=== PATIENT | female | born 1995 | race Caucasian/White ===

== ENCOUNTER 2021-10-14 17:04 | Emergency (ER) | payer BC ==
--- OUTSIDE RECORDS SUMMARY | 2021-10-14 17:07 | XMS REPORT | Continuity of Care Document ---
:1995 Author Organization [facility] Address [address] [place] [address] Dr. Wong [address] [place] [address] Care Team Providers Name Role Phone LISA Attending Clinician Unavailable Payers Payer Name Policy Type Policy Number Effective Date Expiration Date S ariadne [facility] - [id number] 2019 00:00:00 OUT OF STATE Problems This patient has no known problems. Allergies, Adverse Reactions, Alerts Allergy Allergy Status Severity Reaction(s) Onset Inactive Treating Comm ents Source Name Type Date Date Clinician NO KNOWN Drug Active [facility] Medications This patient has no known medications. Procedures This patient has no known procedures. Encounters Start End Encounter Admission Attending Care Care Encounter Source Date/Time Date/Time Type Type Clinicians Facility Department ID 2020-08-18 2020-08-18 Outpatient R LISA [facility] [id number] [facility] 10:30:00 10:30:00 PHYLLIS [id number] [facility] 2020-08-18 2020-08-18 Outpatient R LISA [facility] [id number] [facility] 10:30:00 10:30:00 [facility] 2020-08-07 2020-08-07 Outpatient R LISA [facility] [id number] [facility] 13:15:00 13:15:00 [facility] 2020-08-07 2020-08-07 Outpatient Shivam GONZALEZ [facility] [id number] [facility] 13:15:00 13:15:00 [facility] 2020-06-29 2020-06-29 Outpatient R LISA [facility] [id number] [facility] 13:30:00 13:30:00 PHYLLIS [id number] [facility] 2020-06-29 2020-06-29 Outpatient R VANAPHAN, [facility] [id number] [facility] 13:30:00 13:30:00 [facility] 2020-03-11 2020-03-11 [facility] [id number] [facility] 13:00:00 13:00:00 [facility] Results This patient has no known results.
[2021-10-14] MEDS ORDERED: MORPHINE 2 MG/ML SYR ONE (17:45)
[2021-10-14] MEDS ORDERED: NA CHLORIDE 0.9% 1,000 ML ONE (17:45)
[2021-10-14] MEDS ORDERED: ONDANSETRON 4 MG/2 ML VIAL ONE (17:46)
[2021-10-14 17:57] LABS: Urine Blood Trace-intact (Negative); Urine Glucose Negative (Negative); Urine Protein Negative (Negative); Urine pH 5.5 (5.0-7.0)
[2021-10-14 18:24] LABS: Absolute Lymphocytes (CBC) 2.1 K/uL (0.7-4.9); Basophils % 0.5 % (0-1.3); Hematocrit 38.3 % (36.0-45.0); Lymphocytes % 25.9 % (15.3-44.8); MPV 8.1 fL (7.6-11.3); RBC Red Blood Cell Count 4.07 M/uL (3.86-4.86)
[2021-10-14 18:52] LABS: Albumin 3.7 g/dL (3.4-5.0); Bilirubin Direct 0.1 mg/dL (0-0.2); Bilirubin Total 0.4 mg/dL (0.2-1.0); Potassium 3.8 mmol/L (3.5-5.1); Protein, Total 7.5 g/dL (6.4-8.2)
--- NOTE | 2021-10-14 19:17 | RAD REPORT ---
EXAM DESCRIPTION: CT - Abdomen Pelvis W Contrast - 10/14/2021 6:48 pm CLINICAL HISTORY: lower abdomen pain COMPARISON: No comparisons TECHNIQUE: Biphasic, helical CT imaging of the abdomen and pelvis was performed following 100 ml non -ionic IV contrast. No oral contrast. All CT scans are performed using dose optimization technique as appropriate and may include automated exposure control or mA/KV adjustment according to patient size. FINDINGS: No suspicious findings in the lung bases. The liver, spleen, and pancreas show no suspicious findings. Gallbladder and biliary tree are also wi thout suspicious finding. Symmetric renal function is seen with no hydronephrosis or suspicious renal mass. No pyelonephritis o r acute parenchymal process. No bladder abnormalities. No adrenal abnormalities. No acute uterine finding seen. Ovaries are normal size. Small involuting cysts are possible but no soler spicious ovarian finding seen. Clips from tubal ligation are present. No dilated bowel loops or bowel wall thickening. Appendicitis is not suspected. A few mildly prominen t fluid-filled small bowel loops are present. Nonspecific enteritis would be a consideration. No free air, free fluid or inflammatory stranding. No hernia, mass or bulky lymphadenopathy. No suspicious bony findings. IMPRESSION: No free air, obstruction, appendicitis findings or other emergent abdomen or pelvis find ing. A few mildly prominent fluid-filled small bowel loops are present. Nonspecific enteritis is possible.
[2021-10-14 19:21] LABS: Urine Bacteria <20 /HPF (<20); Urine RBC <5 /HPF (NONE SEEN)
[2021-10-14] MEDS ORDERED: DICYCLOMINE HCL 10 MG CAP ONE (19:28)
--- NOTE | 2021-10-14 19:33 | EDPHYS ---
Physician Documentation [facility] Name: Syed Brandt Age: 26 yrs Sex: Female : 1995 Arrival Date: 10/14/2021 Time: 17:05 Bed 19 Private MD: ED Physician Angela Galvez HPI: 10/14 17:45 This 26 yrs old Female presents to ER via Ambulatory with complaints of Abdominal cp Cramping. 17:45 The patient presents with abdominal pain in the lower abdomen. The symptoms are cp described as crampy. 17:45 Onset: The symptoms/episode began/occurred 3 day(s) ago. The symptoms do not radiate. cp Associated signs and symptoms: Pertinent positives: nausea, Pertinent negatives: constipation, diarrhea, dysuria, fever, vaginal discharge, vomiting. Severity of pain: in the emergency department the pain is unchanged despite home interventions. 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 Pneumococcal vaccine is not up to date, Flu vaccine is not up to date. - Social history:: Smoking status: Patient reports the use of cigarette tobacco products, smokes one-half pack cigarettes per day. ROS: 17:50 Constitutional: Negative for body aches, chills, fever, poor PO intake. cp 17:50 Eyes: Negative for injury, pain, redness, and discharge. cp 17:50 ENT: Negative for ear pain, sore throat, difficulty swallowing, difficulty handling secretions. 17:50 Respiratory: Negative for cough, shortness of breath, wheezing. 17:50 Abdomen/GI: Positive for abdominal pain, nausea, of the right lower quadrant and left lower quadrant, Negative for vomiting, diarrhea, constipation, anorexia. 17:50 : Negative for urinary symptoms, pelvic pain, flank pain, vaginal bleeding, vaginal discharge. 17:50 Neuro: Negative for altered mental status, headache, weakness. 17:50 All other systems are negative. Exam: 17:33 ECG was reviewed by the Attending Physician. cp 17:55 Constitutional: The patient appears in no acute distress, alert, awake, non-toxic, well cp developed, well nourished, uncomfortable. 17:55 Head/Face: Normocephalic, atraumatic. cp 17:55 Eyes: Periorbital structures: appear normal, Conjunctiva: normal, no exudate, no injection, Sclera: no appreciated abnormality, Lids and lashes: appear normal, bilaterally. 17:55 ENT: External ear(s): are unremarkable, Nose: is normal, Mouth: Lips: moist, Oral mucosa: moist, Posterior pharynx: Airway: no evidence of obstruction, patent. 17:55 Chest/axilla: Inspection: normal, Palpation: is normal, no crepitus, no tenderness. 17:55 Cardiovascular: Rate: normal, Rhythm: regular. 17:55 Respiratory: the patient does not display signs of respiratory distress, Respirations: normal, no use of accessory muscles, no retractions, labored breathing, is not present, Breath sounds: are clear throughout, no decreased breath sounds, no stridor, no wheezing. 17:55 Abdomen/GI: Inspection: abdomen appears normal, Bowel sounds: active, all quadrants, Palpation: soft, in all quadrants, severe abdominal tenderness, in the right lower quadrant and left lower quadrant, rebound tenderness, is not appreciated, voluntary guarding, is elicited in the right lower quadrant and left lower quadrant. 17:55 Back: CVA tenderness, is absent. Vital Signs: 17:27 BP 150 / 94; Pulse 89; Resp 15; Pulse Ox 100% on R/A; ss 19:17 BP 130 / 88; Pulse 92; Resp 18; Pulse Ox 100% on R/A; sm5 19:48 BP 124 / 91; Pulse 72; Resp 17; Pulse Ox 99% on R/A; sm5 MDM: 17:14 Patient medically screened. cp 18:00 Differential diagnosis: appendicitis, diverticulitis, Endometriosis, Ovarian Torsion, cp Pelvic Inflammatory Disease, Pyelonephritis, Ureterolithiasis, urinary tract infection. 19:32 Data reviewed: vital signs, nurses notes, lab test result(s), radiologic studies, CT cp scan. 19:32 Counseling: I had a detailed discussion with the patient and/or guardian regarding: the cp historical points, exam findings, and any diagnostic results supporting the discharge/admit diagnosis, lab results, radiology results, the need for outpatient follow up, a hoop maker machine, to return to the emergency department if symptoms worsen or persist or if there are any questions or concerns that arise at home. Response to treatment: the patient's symptoms have markedly improved after treatment, VSS. Pain improved. CT abdomen/pelvis negative for acute findings. Will discharge to home for continued monitoring. 10/14 17:39 Order name: Basic Metabolic Panel; Complete Time: 19:23 10/14 19:24 Interpretation: Normal except: GFR 89. 10/14 17:39 Order name: CBC with Diff; Complete Time: 18:28 10/14 19:24 Interpretation: Normal except: MCV 94.1. 10/14 17:39 Order name: Hepatic Function; Complete Time: 19:23 10/14 19:24 Interpretation: Normal except: AST 12; ALK 40; GLOB 3.8; A/G 1.0. 10/14 17:39 Order name: Lipase; Complete Time: 19:23 10/14 17:39 Order name: Urine Microscopic Only; Complete Time: 19:23 10/14 17:57 Order name: Urine Dipstick-Ancillary; Complete Time: 18:28 [facility] 10/14 17:39 Order name: IV Saline Lock; Complete Time: 19:50 10/14 17:39 Order name: CT Abd/Pelvis - IV Contrast Only; Complete Time: 19:23 10/14 19:24 Interpretation: Report reviewed. 10/14 17:58 Order name: Urine --Ancillary (enter results) 10/14 17:59 Order name: Urine --Ancillary; Complete Time: 19:23 [facility] 10/14 17:39 Order name: Labs collected and sent; Complete Time: 19:50 10/14 17:39 Order name: Urine Dipstick-Ancillary (obtain specimen); Complete Time: 17:59 10/14 17:39 Order name: Urine Test (obtain specimen); Complete Time: 17:58 10/14 19:25 Order name: PO challenge; Complete Time: 19:29 cp EC:33 Rate is 91 beats/min. Rhythm is regular. [place] interval is normal. QRS interval is normal. cp QT interval is normal. T waves are Inverted in lead aVR. Interpreted by me. Reviewed by me. Administered Medications: 18:10 Drug: NS 0.9% 1000 ml Route: IV; Rate: 1 bolus; Site: right antecubital; jg9 19:50 Follow up: IV Status: Completed infusion; IV Intake: 1000ml sm5 18:11 Drug: Zofran (Ondansetron) 4 mg Route: IVP; Site: right antecubital; jg9 19:49 Follow up: Response: Marked relief of symptoms sm5 18:12 Drug: morphine 2 mg Route: IVP; Site: right antecubital; jg9 19:49 Follow up: Response: Pain is decreased sm5 19:34 Drug: Bentyl (dicyclomine) 20 mg Route: PO; sm5 19:49 Follow up: Response: Marked relief of symptoms sm5 Point of Care Testing: Urine : 17:59 hCG Reading: Negative; Control Reading: Positive; jg9 Disposition: 10/15 07:51 Co-signature as Attending Physician, Angela Galvez MD I agree with the assessment and sp3 plan of care. Disposition Summary: 10/14/21 19:33 Discharge Ordered Location: Home cp Problem: new cp Symptoms: have improved cp Condition: Stable cp Diagnosis - Lower abdominal pain, unspecified cp Followup: cp - With: Private Physician - When: 1 - 2 days - Reason: Recheck today's complaints Discharge Instructions: - Discharge Summary Sheet cp - Abdominal Pain, Adult cp Forms: - Medication Reconciliation Form cp - Thank You Letter cp - Antibiotic Education cp - Prescription Opioid Use cp Prescriptions: - Protonix 40 mg Oral Tablet - take 1 tablet by ORAL route once daily; 30 tablet; Refills: 0, Product cp Selection Permitted - Zofran 4 mg Oral Tablet - take 1 tablet by ORAL route every 12 hours As needed; 20 tablet; Refills: 0, cp Product Selection Permitted - dicyclomine 20 mg Oral Tablet - take 1 tablet by ORAL route 4 times per day As needed; 30 tablet; Refills: 0, cp Product Selection Permitted Signatures: Dispatcher [employer] Nirmala Mcdonough RN RN Lázaro London PA PA cp Patel, Setul, MD MD sp3 Annabel Light RN RN 5 Carolyn Waterman jg9
--- NOTE | 2021-10-14 19:33 | ER ---
Nurse's Notes [facility] Name: Syed Brandt Age: 26 yrs Sex: Female : 1995 Arrival Date: 10/14/2021 Time: 17:05 Bed 19 Private MD: Diagnosis: Lower abdominal pain, unspecified Presentation: 10/14 17:20 Onset of symptoms was April 2021. jg9 17:27 Chief complaint: Patient states: abd cramping. Coronavirus screen: Client denies travel ss out of the [place] in the last 14 days. Ebola Screen: Patient denies exposure to infectious person. Patient denies travel to an Ebola-affected area in the 21 days before illness onset. Initial Sepsis Screen: Does the patient meet any 2 criteria? No. Patient's initial sepsis screen is negative. Does the patient have a suspected source of infection? No. Patient's initial sepsis screen is negative. Risk Assessment: Do you want to hurt yourself or someone else? Patient reports no desire to harm self or others. 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 Pneumococcal vaccine is not up to date, Flu vaccine is not up to date. - Social history:: Smoking status: Patient reports the use of cigarette tobacco products, smokes one-half pack cigarettes per day. Screenin:20 Abuse screen: Denies threats or abuse. Denies injuries from another. Nutritional jg9 screening: No deficits noted. Tuberculosis screening: No symptoms or risk factors identified. Fall Risk None identified. Assessment: 17:20 General: Appears uncomfortable, Behavior is calm, cooperative, appropriate for age. jg9 Pain: Complains of pain in abdomen-mid abd pain near umbilicus 10/10, cramping Pain currently is 10 out of 10 on a pain scale. Quality of pain is described as crampy, Pain began 2-3 days ago. Is continuous. Neuro: No deficits noted. Cardiovascular: No deficits noted. Respiratory: No deficits noted. GI: Abd is soft Abdomen is tender to palpation in umbilical area Reports lower abdominal pain, vomiting. : No deficits noted. EENT: No deficits noted. Derm: No deficits noted. Musculoskeletal: No deficits noted. 17:20 GI: Bowel sounds present X 4 quads. jg9 Vital Signs: 17:27 BP 150 / 94; Pulse 89; Resp 15; Pulse Ox 100% on R/A; ss 19:17 BP 130 / 88; Pulse 92; Resp 18; Pulse Ox 100% on R/A; sm5 19:48 BP 124 / 91; Pulse 72; Resp 17; Pulse Ox 99% on R/A; sm5 ED Course: 17:05 Patient arrived in ED. kc5 17:10 Lázaro Roy PA is PHCP. cp 17:10 Angela Galvez MD is Attending Physician. cp 17:20 Patient has correct armband on for positive identification. Bed in low position. Call jg9 light in reach. Side rails up X 1. 17:28 Triage completed. ss 17:28 Arm band placed on right wrist. ss 17:29 Carolyn Waterman is Primary Nurse. jg9 18:09 Inserted saline lock: 20 gauge in right antecubital area, using aseptic technique. jg9 18:48 CT Abd/Pelvis - IV Contrast Only In Process Unspecified. EDMS 19:48 No provider procedures requiring assistance completed. IV discontinued, intact, sm5 bleeding controlled, No redness/swelling at site. Pressure dressing applied. 19:50 Urine --Ancillary (enter results) Sent. 5 Administered Medications: 18:10 Drug: NS 0.9% 1000 ml Route: IV; Rate: 1 bolus; Site: right antecubital; jg9 19:50 Follow up: IV Status: Completed infusion; IV Intake: 1000ml 5 18:11 Drug: Zofran (Ondansetron) 4 mg Route: IVP; Site: right antecubital; jg9 19:49 Follow up: Response: Marked relief of symptoms 5 18:12 Drug: morphine 2 mg Route: IVP; Site: right antecubital; jg9 19:49 Follow up: Response: Pain is decreased 5 19:34 Drug: Bentyl (dicyclomine) 20 mg Route: PO; sm5 19:49 Follow up: Response: Marked relief of symptoms [facility] Point of Care Testing: Urine : 17:59 hCG Reading: Negative; Control Reading: Positive; jg9 Intake: 19:50 IV: 1000ml; Total: 1000ml. [facility] Outcome: 19:33 Discharge ordered by . cp 19:48 Discharged to home with significant other. [facility] 19:48 Condition: good 19:48 Discharge instructions given to patient, significant other, Instructed on discharge instructions, follow up and referral plans. medication usage, Demonstrated understanding of instructions, follow-up care, medications, Prescriptions given X 3. 19:50 Patient left the ED. [facility] Signatures: Dispatcher [employer] EDMS Nirmala Dee RN RN ss Page, Corey, PA PA cp Clark, Kasey Annabel Shelby RN RN Carolyn Mandel jg9 Corrections: (The following items were deleted from the chart) 17:28 17:27 Onset of symptoms [facility]
[2021-10-14 20:15] VITALS: BP 124/91; O2SAT 99
== END 2021-10-14 19:50 | disposition home or self-care (01) ==
LOC: ER 17:04
DX: R10.30 Lower abdominal pain, unspecified (principal); F17.210 Nicotine dependence, cigarettes, uncomplicated; Z88.0 Allergy status to penicillin
CPT/HCPCS: 96361; 93005; 85025; 80048; 36415; 81025; 80076; 83690; 74177; 96375; 96374; 99284; Q9967; J2270; J7030; J2405; 81003; 81015